=== PATIENT | male | born 1955 | race Caucasian/White ===

== ENCOUNTER 2017-02-07 07:15 | Emergency (ER) | payer OTHER ==
[2017-02-07 07:22] VITALS: BP 147/90
--- NOTE | 2017-02-07 07:40 | UC ---
Skin Complaint HPI - HPI Summary HPI Summary: Pt presents through amb triage. Pt states last evening developed hives to arms, back, chest, abd, leg. Pt states progressively itchy overnight. Worse with shower last night. States started following exercise. Denies new products. No oral swelling. No difficulty swallowing. No wheezing. No difficulty breathing. No h/o similar Pt's medications reviewed at this visit - History of Current Complaint Chief Complaint: UCRash Time Seen by Provider: 02/07/17 07:22 Stated Complaint: RASH Hx Obtained From: Patient Onset/Duration: Gradual Onset, Lasting Hours Skin Exposure Onset/Duration: Hours Ago Timing: Constant Pain Scale Used: 0-10 Numeric Location: Diffuse, Generalized Aggravating: Nothing Alleviating: Nothing Associated Signs & Symptoms: Positive: Negative - Allergy/Home Medications Allergies/Adverse Reactions: Allergies Allergy/AdvReac Type Severity Reaction Status Date / Time SULFATE Allergy Mild WHEEZY Uncoded 02/07/17 07:17 SULFITES Allergy Mild WHEEZY Uncoded 02/07/17 07:17 LACTOSE Allergy PHLEGM Uncoded 02/07/17 07:17 Review of Systems Constitutional: Negative Skin: Rash Eyes: Negative ENT: Negative Respiratory: Negative Cardiovascular: Negative Gastrointestinal: Negative Genitourinary: Negative Motor: Negative Neurovascular: Negative Musculoskeletal: Negative Neurological: Negative Psychological: Negative All Other Systems Reviewed And Are Negative: Yes PMH/Surg Hx/FS Hx/Imm Hx Previously Healthy: Yes GI/ History: Gastroesophageal Reflux - Surgical History Surgical History: Yes Surgery Procedure, Year, and Place: appendectomy, RT achilles tendon repair,RT rotator cuff surgery - Family History Family History: brother with Chron's - Social History Lives: With Family Alcohol Use: Occasionally Substance Use Type: None Smoking Status (MU): Never Smoked Tobacco Physical Exam Triage Information Reviewed: Yes Completion Of Physical Exam Limited Due To: Altered Mental Status Appearance: Well-Appearing, No Pain Distress, Well-Nourished Vital Signs: Initial Vital Signs Temp 97.6 F 02/07/17 07:18 Pulse 64 02/07/17 07:18 Resp 16 02/07/17 07:18 BP 147/90 02/07/17 07:18 Pulse Ox 100 02/07/17 07:18 Vital Signs Reviewed: Yes Eye Exam: Normal Eyes: Positive: Conjunctiva Clear ENT Exam: Normal ENT: Positive: Normal ENT inspection, Pharynx normal, TMs normal Dental Exam: Normal Neck exam: Normal Neck: Positive: Supple, Nontender, No Lymphadenopathy Respiratory Exam: Normal Respiratory: Positive: Chest non-tender, Lungs clear, Normal breath sounds Cardiovascular Exam: Normal Cardiovascular: Positive: RRR, No Murmur Abdominal Exam: Normal Abdomen Description: Positive: Nontender, No Organomegaly, Soft Bowel Sounds: Positive: Present Musculoskeletal Exam: Normal Musculoskeletal: Positive: Strength Intact Neurological Exam: Normal Neurological: Positive: Alert Psychological Exam: Normal Psychological: Positive: Normal Response To Family Skin: Positive: rashes - urticaria hives - diffuse Course/Dx - Course Course Of Treatment: Pt with progressive hives since last night after exercise. No new prodructs. No resp involvement. Medrol dose pack. benadryl - precautions given. pepcid. avoid heat. aoid nsaid. pt in agreement with plan. Pt advised to f/u re BP - Diagnoses Provider Diagnoses: hives Discharge - Discharge Plan Condition: Stable Disposition: HOME Prescriptions: Famotidine TAB* [Pepcid 20 MG TAB*] 20 mg PO BID #14 tab Methylprednisolone [Medrol Dosepak 4 MG*] 4 mg PO .SEE DEBBIE INSTRUCTION #1 tab Patient Education Materials: Urticaria (ED) Referrals: Julio Lang MD [Primary Care Provider] - Additional Instructions: - Take prednisone exactly as prescribed until gone - starting today - decreasing dose each day - Okay to take Benadryl (1-2 tablets) every 6 hours as needed. This medication may cause drowsiness - do NOT drive, operate machinery or drink alcohol while taking Benadryl -Take pepcid as prescribed - 2 times daily for 7 days -Avoid getting over heated (hot showers, hot tubs, exercise) for at least 48 hours - Try to avoid aspirin, NSAIDs (Motrin, Aleve, Naprosyn) for 2-3 days - Cool cloths applied to the hives may help with itching -Contact your doctor or return here with questions or concerns
== END 2017-02-07 07:40 | disposition home or self-care (01) ==
LOC: UCEAST 07:15
DX: L50.9 Urticaria, unspecified (principal); K21.9 Gastro-esophageal reflux disease without esophagitis; Z88.2 Allergy status to sulfonamides; Z91.011 Allergy to milk products
CPT/HCPCS: 99212; G0463

== ENCOUNTER 2017-08-17 13:52 | Emergency (ER) | payer OTHER ==
[2017-08-17 14:08] VITALS: BP 166/89
--- NOTE | 2017-08-17 14:20 | UC ---
Skin Complaint HPI - HPI Summary HPI Summary: Pt presents with "growth" and pain in belly button. He first noticed this last night. He does go to the gym 2-3 days a week and tries to exercise often. He denies fever, chills, drainage from the area, abdominal pain, n/v/d/c. - History of Current Complaint Chief Complaint: UCSkin Time Seen by Provider: 08/17/17 14:20 Stated Complaint: SWOLLEN PAINFUL BELLY BUTTON Hx Obtained From: Patient Onset Severity: Mild Current Severity: Mild Pain Intensity: 1 Pain Scale Used: 0-10 Numeric - Allergy/Home Medications Allergies/Adverse Reactions: Allergies Allergy/AdvReac Type Severity Reaction Status Date / Time SULFATE Allergy Mild WHEEZY Uncoded 08/17/17 14:09 SULFITES Allergy Mild WHEEZY Uncoded 08/17/17 14:09 LACTOSE Allergy PHLEGM Uncoded 08/17/17 14:09 Review of Systems Constitutional: Negative Skin: Negative Respiratory: Negative Cardiovascular: Negative Gastrointestinal: Negative Musculoskeletal: Negative Neurological: Negative Psychological: Negative All Other Systems Reviewed And Are Negative: Yes PMH/Surg Hx/FS Hx/Imm Hx Previously Healthy: Yes Endocrine History: Dyslipidemia GI/ History: Gastroesophageal Reflux - Surgical History Surgical History: Yes Surgery Procedure, Year, and Place: appendectomy, RT achilles tendon repair,RT rotator cuff surgery - Family History Family History: brother with Chron's - Social History Occupation: Employed Full-time Lives: With Family Alcohol Use: Occasionally Substance Use Type: None Smoking Status (MU): Never Smoked Tobacco Physical Exam Triage Information Reviewed: Yes Appearance: Well-Appearing, No Pain Distress, Well-Nourished Vital Signs: Initial Vital Signs Temp 97.0 F 08/17/17 14:05 Pulse 60 08/17/17 14:05 Resp 12 08/17/17 14:05 BP 166/89 08/17/17 14:05 Pulse Ox 98 08/17/17 14:05 Vital Signs Reviewed: Yes Neck: Positive: Supple, Nontender, No Lymphadenopathy Respiratory: Positive: Lungs clear, Normal breath sounds, No respiratory distress, No accessory muscle use Cardiovascular: Positive: RRR, No Murmur, Pulses Normal Abdomen Description: Positive: Nontender, No Organomegaly, Soft, Other: - 1.0cm umbilical hernia mildly TTP - reducible, but reoccurs with sit up.. Negative: CVA Tenderness (R), CVA Tenderness (L), Distended, Guarding Bowel Sounds: Positive: Present Neurological: Positive: Alert Psychological: Positive: Age Appropriate Behavior Skin: Negative: rashes Course/Dx - Course Course Of Treatment: Umbilical hernia - refer to general surgery - Diagnoses Provider Diagnoses: Umbilical hernia Discharge - Discharge Plan Condition: Stable Disposition: HOME Prescriptions: Hydrocortisone 1% CREAM* [Hytone Cream 1%*] 1 applic TOPICAL BID #1 tube Patient Education Materials: Umbilical Hernia (ED) Referrals: Julio Lang MD [Primary Care Provider] - Yoel Weems MD [Medical Doctor] - As Soon As Possible Additional Instructions: If you develop a fever, shortness of breath, chest pain, vomiting, increased pain, new or worsening symptoms - please call your PCP or go to the ED. Your blood pressure was high at todays visit. Please see your primary provider within 4 weeks for recheck and re-evaluation. 1) Please call Dr. Weems at the number below to schedule an appointment regarding your umbilical hernia.
== END 2017-08-17 14:35 | disposition home or self-care (01) ==
LOC: UCEAST 13:52
DX: K42.9 Umbilical hernia without obstruction or gangrene (principal); E78.5 Hyperlipidemia, unspecified; K21.9 Gastro-esophageal reflux disease without esophagitis
CPT/HCPCS: 99212; G0463

== ENCOUNTER 2017-11-04 06:11 | Day surgery (SDC) | payer OTHER ==
--- NOTE | 2017-10-22 06:42 | HP ---
CC: Julio aLng MD * ADMISSION HISTORY AND PHYSICAL: DATE OF ADMISSION: 11/04/17 ATTENDING SURGEON: Suleman Giraldo MD * (DICTATED BY AVTAR RICHMOND) CHIEF COMPLAINT: Umbilical hernia. HISTORY OF PRESENT ILLNESS: This is a 62-year-old male who about 2 months ago experienced pain, tenderness, and redness at the umbilicus. He had noticed a smaller lump in that area previously, but it had been asymptomatic. He was seen at urgent care center and referred for surgical evaluation. Other than a vague sense of discomfort, he has not had any GI symptoms per se. He states that since the evaluation with Dr. Giraldo, the area of swelling and redness has decreased almost back to baseline. He was seen in the office by Dr. Giraldo on 08/27/17, at which time exam confirmed the presence of an incarcerated umbilical hernia, which was mildly tender and erythematous. Dr. Giraldo recommended repair. The patient understands the indications for surgery , the risks, benefits, and alternatives and would like to proceed as scheduled with open repair of umbilical hernia with possible mesh. PAST MEDICAL HISTORY: 1. Arrhythmia. 2. Hypercholesterolemia. 3. Bilateral lower extremity edema. 4. Asthma. 5. Allergies. 6. Small bowel obstruction x2, the most recent episode being 10 years ago. PAST SURGICAL HISTORY: Previous surgeries include open appendectomy for what sounds like ruptured appendicitis, repair or ruptured right Achilles tendon and right rotator cuff repair. No reported surgical or anesthesia problems. CURRENT MEDICATIONS: 1 Dymista nasal spray 137-50 mcg per actuation and 1 spray each nostril once daily p.r.n. 2. Flovent 220 mcg per actuation 1 puff once daily p.r.n. 3. Atorvastatin 20 mg once daily. 4. Antacid p.r.n. (he uses anything from Tums to iusa-dwo-rtrdrkx H2 florencia or PPI approximately once weekly). 5. Sodium supplement p.r.n. for constipation (typically twice weekly). DRUG ALLERGIES: None known. FAMILY HISTORY: Negative for anesthesia problems, bleeding or clotting disorders. SOCIAL HISTORY: The patient is . He has 1 child. 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 He denies use of tobacco. He drinks approximately 1 drink per week. He denies recreational drug use. REVIEW OF SYSTEMS: General: No recent constitutional symptoms or acute illnesses other than described in the HPI. His weight has been stable. Eyes: No recent problems reported. Ears, nose, throat: No problems reported. Cardiovascular: History of arrhythmia. He has undergone a previous stress test over 10 years ago, which he states was a normal report. He has had bilateral lower extremity edema at different times, typically improved in the morning and increased later in the day or with long periods of sitting or standing. He has experienced Raynaud's phenomenon of his upper extremity digits generally related to cold. Respiratory: No recent exacerbations of his asthma. No cough or shortness of breath. GI: Colonoscopy done within the past 3 to 5 years reportedly normal. No other additions. : He states that he has had an elevated PSA, but that has been stable and has not required any treatment. No additional symptoms reported. Endocrine: No diabetes or thyroid dysfunction. PHYSICAL EXAMINATION GENERAL: Well-nourished, well-developed male, in no acute distress. VITAL SIGNS: Height 73 inches, weight 205 pounds. Temperature 97.5, blood pressure 132/80, pulse 72, respirations 16. HEENT: Pupils are equal and round, reactive. EOMs intact. No conjunctival pallor. Oropharynx: Teeth in good repair. No intraoral lesions. NECK: No lymphadenopathy, thyromegaly, or masses. LUNGS: Clear to auscultation. No rales or wheezes. HEART: Regular rate and rhythm. No murmur appreciated. ABDOMEN: Small visible and palpable bulge at the umbilicus with minor tenderness to deep palpation. I did not attempt to reduce it entirely. The remainder of the abdomen is soft, nontender and without palpable masses or organomegaly. No palpable inguinal hernias. Genitalia and testes otherwise normal. RECTAL: Not done. BACK: No spinous process or CVA tenderness. EXTREMITIES: 0 to trace edema, left greater than right. Distal pulses are fully palpable bilaterally. NEUROLOGICAL: Grossly intact. SKIN: Warm and dry. No suspicious rashes or lesions. IMPRESSION: Umbilical hernia. PLAN: Open repair of umbilical hernia with possible mesh. AVTAR RICHMOND [id number]/[facility] #: [id number] [facility]ITALAnabell
[~2017-11-04 06:11] MED LIST: Buffered Lidocaine 0.9% SYRIN* 5 ML/SYR SYRINGE INTRADERM ONE; Famotidine IV* 10 MG/ML 2 ML (20 mg) IV ONE
[2017-11-04] MEDS ORDERED: Famotidine IV* 10 MG/ML 2 ML (20 mg) ONE (06:40)
[2017-11-04] MEDS ORDERED: ceFAZolin 2 GM PREMIX (*) 2 GM/50 ML BAG IVPB ONE (06:40)
[2017-11-04] MEDS ORDERED: Buffered Lidocaine 0.9% SYRIN* 5 ML/SYR SYRINGE ONE (06:40)
[2017-11-04] MEDS ORDERED: Bupivacaine 0.5% PF 10 ML VIAL INJ ONE (07:15)
[2017-11-04] MEDS ORDERED: Lidocaine 1% MPF wEPI 200,000* 30 ML SDV ONE (07:15)
[2017-11-04] MEDS ORDERED: fentaNYL* 50 MCG/ML 2 ML VIAL (100 MCG VIAL) ONE (07:27)
[2017-11-04] MEDS ORDERED: Midazolam* 1 MG/ML 5 ML VIAL (5 MG) ONE (07:27)
[2017-11-04] MEDS ORDERED: Propofol* 10 MG/ML 20 ML BTL IV PUSH ONE (07:38)
[2017-11-04] MEDS ORDERED: Ketorolac INJ* 30 MG/ML 1 ML VIAL ONE (07:38)
[2017-11-04] MEDS ORDERED: DiMENhydriNATE IV* 50 MG/ML VIAL ONE (07:38)
[2017-11-04] MEDS ORDERED: Dexamethasone IV* 4 MG/ML 1 ML (4 MG) ONE (07:38)
[2017-11-04] MEDS ORDERED: Lidocaine 2% PF * 5 ML VIAL ONE (07:38)
[2017-11-04] MEDS ORDERED: oxyCODONE TAB* 5 MG TAB PO PRN (07:55)
[2017-11-04] MEDS ORDERED: Naloxone* 0.4 MG/ML 1 ML VIAL IV PRN (07:55)
[2017-11-04] MEDS ORDERED: HYDROmorphone INJ* 1 MG/ML CARPUJECT SYRINGE IV PRN (07:55)
[2017-11-04] MEDS ORDERED: Acetaminophen TAB* 325 MG PO PRN (07:55)
[2017-11-04] MEDS ORDERED: Ondansetron INJ* 2 MG/ML VIAL IV PRN (07:55)
--- NOTE | 2017-11-04 08:32 | BRIEFOPN ---
Brief Operative Note - Surgery Procedures: Procedures IRRIGATION OF EAR (12/11/12) OTHER SUTURE OF TENDON (04/11/00) PropDx: Umbilical Hernia Postop Dx: Same Procedure: Open Umbilical Hernia Repair Surgeon: Kristal Assist: FREDRICK Pollard Anesthesia: MAC; Klufdelio Fluids: 700mL RL EBL: <10mL Drains: None Specimen: None Complications: None Findings: Dictated
[2017-11-04 10:09] VITALS: BP 147/89
--- NOTE | 2017-11-05 06:38 | OP ---
CC: Julio Lang MD * DATE OF OPERATION: 11/04/17 - SDS DATE OF : 55 SURGEON: Suleman Giraldo MD CASING SEWER: None. ANESTHESIOLOGIST: Rhonda Beckford MD ANESTHESIA: Local MAC. PRE-OP DIAGNOSIS: Umbilical hernia. POST-OP DIAGNOSIS: Umbilical hernia. OPERATIVE PROCEDURE: Open umbilical hernia repair. ESTIMATED BLOOD LOSS: Minimal. IV FLUIDS: Crystalloids. SPECIMEN: None. DRAINS: None. COMPLICATIONS: None. COUNTS: The instrument, needle, and sponge counts were correct. DESCRIPTION OF PROCEDURE: The patient was brought to the operating room, placed on the table supine. Sequential compression devices were placed on both lower extremities. Intravenous sedation was administered and his abdomen was prepped and draped in the usual sterile fashion. Time-out was performed. Local anesthetic was infiltrated periumbilically and a curvilinear infraumbilical incision was created. Subcutaneous tissues were divided with cautery, sharp and blunt dissection. The umbilical stalk was divided from the anterior abdominal wall and the umbilical hernia sac was dissected free from the stalk. The sac was reduced and then the fascial edges were identified and closed with 0 Ethibond suture using a [id number]-ca-btlgy suture and a single simple suture to complete the closure. The defect measured less than 2 cm. The umbilical stalk was reapproximated to the anterior abdominal wall with 3-0 Vicryl. Skin was closed with 3-0 Vicryl in interrupted fashion for the deep dermis, 4-0 Monocryl in running fashion for the skin in subcuticular fashion. Steri-Strips were applied with compression dressing. The patient tolerated the procedure well and was transferred to Recovery stable. [id number]/[facility] #: [id number] MTDD
== END 2017-11-04 10:26 | disposition home or self-care (01) ==
LOC: OR 06:11
PROVIDERS: ATTEND Surgery
DX: K42.9 Umbilical hernia without obstruction or gangrene (principal); J45.909 Unspecified asthma, uncomplicated; E78.00 Pure hypercholesterolemia, unspecified; I73.00 Raynaud's syndrome without gangrene; K21.9 Gastro-esophageal reflux disease without esophagitis; Q28.9 Congenital malformation of circulatory system, unspecified
CPT/HCPCS: J0690; J1100; J1240; J1885; J2001; J2250; J2704; J3010

== ENCOUNTER 2018-10-12 19:15 | Emergency (ER) | payer OTHER ==
[2018-10-12 19:45] VITALS: BP 127/83
--- NOTE | 2018-10-12 20:33 | UC ---
Eye Complaint HPI - HPI Summary HPI Summary: Mr. Herrera started noticing flashes in his eyes that were intermittent starting about 3 PM. Sometimes a flashes seemed to be on the left and sometimes on the right and so he describes them as being in both eyes. About an hour ago he started with some mild impairment of his vision in the right eye. He describes this as a floater and has never had a floater before. He can move it with rapid eye movements. It is present in his right eye with his left eye closed and is gone with his right eye closed. - History of Current Complaint Chief Complaint: UCEye Stated Complaint: EYE COMPLAINT Time Seen by Provider: 10/12/18 20:13 Hx Obtained From: Patient Onset/Duration: Sudden Onset Timing: Constant Severity Initially: Mild Severity Currently: Mild Pain Intensity: 0 Aggravating Factor(s): Nothing Alleviating Factor(s): Nothing Associated Signs And Symptoms: Positive: Negative, Vision Impairment Right - Allergies/Home Medications Allergies/Adverse Reactions: Allergies Allergy/AdvReac Type Severity Reaction Status Date / Time SULFATE Allergy Mild WHEEZY Uncoded 10/12/18 19:45 SULFITES Allergy Mild WHEEZY Uncoded 10/12/18 19:45 LACTOSE Allergy PHLEGM Uncoded 10/12/18 19:45 PMH/Surg Hx/FS Hx/Imm Hx Previously Healthy: Yes Cardiovascular History: Other - High Cholesterol - Surgical History Surgical History: Yes Surgery Procedure, Year, and Place: appendectomy, [facility] [place]. RT achilles tendon repair, [facility] [place]. 2002 RT rotator cuff surgery [facility] [place] - Family History Family History: brother with Chron's - Social History Alcohol Use: Occasionally Alcohol Amount: 1-2 DRINKS/WEEK Substance Use Type: None Smoking Status (MU): Never Smoked Tobacco Have You Smoked in the Last Year: No Review of Systems All Other Systems Reviewed And Are Negative: Yes Physical Exam - Summary Physical Exam Summary: His pupils are fairly small bilaterally. Both reactive to light both directly and consensually. Even in a darkened room it's difficult to see his retina. I don't see any obvious hemorrhage or tear. Triage Information Reviewed: Yes Appearance: Well-Appearing Vital Signs: Initial Vital Signs Temp 97.3 F 10/12/18 19:41 Pulse 64 10/12/18 19:41 Resp 16 10/12/18 19:41 BP 127/83 10/12/18 19:41 Pulse Ox 97 04/29/19 19:41 Vital Signs Reviewed: Yes Eye Exam: Normal Eye Complaint Course/Dx - Course Course Of Treatment: This seems like a peripheral problem and not a central problem. My concern is for a retinal hemorrhage or tear. His symptoms are very mild at this point. I recommended taking it easy this evening and follow with Dr. Patel first thing tomorrow morning. He'll go to get a better exam and evaluation. - Differential Dx/Diagnosis Provider Diagnosis: Visual acuity reduced Discharge - Sign-Out/Discharge Documenting (check all that apply): Patient Departure All imaging exams completed and their final reports reviewed: No Studies - Discharge Plan Condition: Stable Disposition: HOME Patient Education Materials: Retinal Hemorrhage (ED) Referrals: Julio Lang MD [Primary Care Provider] - Additional Instructions: Retinal hemorrhage or tear is a possibility. Please follow up with an carburizer first thing tomorrow. If you are worsening go to the emergency department. - Billing Disposition and Condition Condition: STABLE Disposition: Home
== END 2018-10-12 20:45 | disposition home or self-care (01) ==
LOC: UCEAST 19:15
DX: H54.7 Unspecified visual loss (principal); E78.5 Hyperlipidemia, unspecified
CPT/HCPCS: 99212; G0463